=== PATIENT | male | born 1930 | race Caucasian/White ===

== ENCOUNTER → 2017-08-14 | Day surgery (SDC) | payer OTHER, MEDICARE ==
[~2017-08-14] VITALS: Ht 165.1 cm; Wt 63.5 kg
[~2017-08-14] MED LIST: ATENOLOL25 M1 PO; CLOPIDOGREL75 M1 PO; DOXAZOSIN MESYLA4 M1 PO; FINASTERIDE5 M1 PO; MULTI-DAY VITA1 EACH PO; SIMVASTATIN10 M1 PO
--- NOTE | 2017-08-14 13:55 | Operative Report ---
Operative/Inv Procedure Report Surgery Date: 08/14/17 Name of Procedure: TURP/TURBT Pre-Operative Diagnosis: Benign prostatic hypertrophy and bladder tumor Post-Operative Diagnosis: same Estimated Blood Loss: 50ml to 100ml Surgeon/Flight Director: Breanna Persaud MD Anesthesia: laryngeal mask airway Drains: 18 Ecuadorean coud catheter Specimens: Prostate chips and bladder tumor chips Complications: None Condition: Stable Operative Indication: Benign prostatic hypertrophy with lower urinary tract symptoms and bladder tumor Operative/Procedure Note Note: This an operative dictation on patient Bubba Rodriguez. He was seen in the office for benign prostatic hypertrophy and had been given conservative management with medication but had no improvement. A cystoscopy and urodynamics was scheduled and on cystoscopy he was found to have a large prostate with obstructing bilateral lobes and no median lobe as well as bladder tumor at the left lateral wall. He was given the risks benefits and alternatives of surgery for the prostate as well as resection of the bladder tumor. He understood the risks benefits and alternatives and wished to proceed. Patient was identified in the holding area and consented for the above. All questions were answered. He was then taken to the operating room placed on the operating table in the supine position. Timeout was performed. IV antibiotics were infused and general anesthesia with LMA was begun. Patient was placed in the dorsolithotomy position and prepped and draped in the standard sterile fashion. A cystoscopy was performed and the bladder was globally inspected. There were no other bladder lesions other than the one on the left lateral wall that was seen in the office. It was superior to the left ureteral orifice. The prostate was then examined on the way out and it was seen to be enlarged was obstructing lateral lobes and no median lobe. The verumontanum was easily identified. The cystoscope was removed and the resectoscope with a 24 loop was then used on the bipolar setting with normal saline. The lateral lobes were resected sequentially from the left side then to the right and then the floor the bladder. Point coagulation was performed as bleeders were unroofed. Throughout the resection, anatomic landmarks of the verumontanum and ureteral orifices were kept in view and care was taken not to go beyond this anatomic landmark or injure the ureters. The prostatic channel was nice and open. The Wiseryou evacuator was then used to remove the prostatic chips. These were sent in formalin. Attention was then turned to the bladder portion of the case. The bladder tumor was photographed with a camera pre-the resection. The resection loop was then used to remove the bladder tumor taking care not to injure the ureter which was to inferior to the tumor. Point coagulation was performed as bleeders were unroofed and coag lesion was performed at the border of the bladder tumor resection site at the end of the resection. The bladder tumor chips were then sent in formalin as well separate from the prostate chips. There was no active bleeding in the bladder tumor resection site or the prostatic the bed. The resectoscope was removed. An 18 Ecuadorean coud catheter was placed and the balloon filled with 10 mL of water. The Prakash catheter was then attached to a prakash bag. The patient tolerated the procedure well he was transferred to the recovery room in stable condition. Findings: Enlarged prostate with obstructing lateral lobes. Bladder tumor along the left lateral wall in a flat orientation proximally 3 satellite sites. The tumor was superior to the ureteral orifice. Discharge Disposition: PACU
== END ==
LOC: STS 03:41
DX: N40.1 Benign prostatic hyperplasia with lower urinary tract symptoms (principal); C67.2 Malignant neoplasm of lateral wall of bladder; R35.0 Frequency of micturition; I25.10 Atherosclerotic heart disease of native coronary artery without angina pectoris; I10 Essential (primary) hypertension; I45.10 Unspecified right bundle-branch block
CPT/HCPCS: J0131; J0690; J2250

== ENCOUNTER 2017-12-12 09:52 | Emergency (ER) | payer OTHER ==
[~2017-12-12] VITALS: Ht 165.1 cm; Wt 68.0 kg
[2017-12-12 10:07] VITALS: BP 128/68
[2017-12-12 10:49] LABS: ABSOLUTE BASOPHIL COUNT 0 /CUMM (0.0-0.2); ABSOLUTE EOSINOPHIL COUNT 0.1 /CUMM (0.0-0.7); ABSOLUTE GRANULOCYTE CT 4.8 /CUMM (1.4-6.5); ABSOLUTE LYMPH COUNT 1.2 /CUMM (1.2-3.4); ABSOLUTE MONOCYTE COUNT 0.3 /CUMM (0.10-0.60); BASOPHIL % 0.7 % (0.0-2.0); EOSINOPHIL % 1.5 % (0-5); GRANULOCYTE % 74.6 % (42.2-75.2); HEMATOCRIT 41.1 % (42-52); MEAN CORPUSCULAR HGB 32.1 PG (27.0-31.0); MEAN CORPUSCULAR HGB CONC 33.4 G/DL (33.0-37.0); PLATELET COUNT 202 /CUMM (130-400); RBC DISTRIBUTION WIDTH 13.1 % (11.5-14.5); RED BLOOD CELL CT 4.28 /CUMM (4.70-6.10); WHITE BLOOD CELL COUNT 6.4 /CUMM (4.8-10.8)
--- NOTE | 2017-12-12 12:02 | RADIOLOGY REPORT ---
EXAMINATION: XR LUMBOSACRAL SPINE XR HIP, LEFT CLINICAL INFORMATION: Left gluteal and thigh pain. History of osteoarthritis. COMPARISON: None TECHNIQUE: Lumbosacral spine, 4 views Left hip, AP and frog-leg lateral views, as well as pelvis, AP view FINDINGS: Lumbosacral spine: Bones appear diffusely osteopenic. Multilevel facet osteoarthritis of the lumbar spine and mild dextrocurvature of the lumbar spine. Severe degenerative disc disease of L3-L4, L4-L5 and L5-S1 and 0.3 cm grade 1 anterolisthesis of L5 on S1. No acute fracture. Abdominal aorta is calcified. Cluster of rim-like calcifications in the right abdomen, consistent with cholelithiasis. Left hip: Bones appear diffusely osteopenic. The femoral head is well-positioned within the intact acetabulum. There is mild osteophyte formation of the left hip. The articular cartilage space of the hip is maintained. The radiographs of the pelvis shows mild osteoarthrosis of the right hip, as well. Peripheral vessels are calcified. Multiple surgical clips are present in the medial thigh. IMPRESSION: 1. Degenerative disc disease and facet osteoarthritis of L3-L4, L4-L5 and L5-S1. 2. No acute fractures within the severely degenerated lumbar spine. 3. Mild, grade 1 anterolisthesis of L5 on S1. 4. Mild osteoarthrosis of the hips. 5. Cholelithiasis.
--- NOTE | 2017-12-12 12:05 | ED GENERAL ADULT ---
History of Present Illness General Chief Complaint: General Adult Stated Complaint: "BACK PAIN AND A LOT OF GAS" Source: patient, family, old records, Epic Exam Limitations: no limitations Vital Signs & Intake/Output Vital Signs & Intake/Output Vital Signs Date Time Temp Pulse Resp B/P B/P Pulse O2 O2 Flow FiO2 Mean Ox Delivery Rate 12/12 1007 88 16 128/68 95 Room Air Allergies Coded Allergies: No Known Allergies (02/17/16) Reconcile Medications Atenolol 25 MG TABLET 0.5 TAB PO DAILY HEART (Reported) Clopidogrel Bisulfate (Clopidogrel) 75 MG TABLET 1 TAB PO DAILY BLOOD THINNER (Reported) Doxazosin Mesylate 4 MG TABLET 1 TAB PO QHS PROSTATE (Reported) Finasteride 5 MG TABLET 1 TAB PO DAILY PROSTATE (Reported) Multivitamin (Multi-Day Vitamins) 1 EACH TABLET 1 TAB PO DAILY SUPPLEMENT ( Reported) Simvastatin (Simvastatin*) 10 MG TABLET 1 TAB PO QPM CHOLESTEROL (Reported) Triage Note: PT TO ER C/C LEFT FLANK PAIN WORSENING X 3 DAYS, DENIES KNOWN INJURY OR TRAUMA. DENIES URINARY S/S. ALSO C/O SEVERE GI GAS PAIN X "WEEKS" Triage Nurses Notes Reviewed? yes Onset: 3 days Duration: day(s):, constant, continues in ED, getting worse Timing: recent history Injury Environment: home Severity: moderate, severe Modifying Factors: Worsens With: movement. HPI: 3 days prior to admission patient complains of left hip pain radiating to his thigh described as achy constant worse with movement of leg walking. He denies difficulty walking secondary to the pain. He tried ibuprofen without relief. He denies fever chills nausea vomiting diarrhea abdominal pain chest pain shortness breath headache dysuria rash bleeding trauma change in bowel bladder habit. Past History Travel History Traveled to [place] past 21 day No Medical History Any Pertinent Medical History? see below for history Neurological: NONE EENT: NONE Cardiovascular: hyperlipidemia Respiratory: NONE Gastrointestinal: NONE Hepatic: NONE Renal: benign prost hyperplasia Musculoskeletal: NONE Psychiatric: NONE Endocrine: NONE Blood Disorders: NONE Cancer(s): NONE CLOD PULLER/Reproductive: NONE Surgical History Surgical History: non-contributory Psychosocial History What is your primary language Danish Tobacco Use: Never used Family History Hx Contributory? No Review of Systems Review of Systems Constitutional: Reports: no symptoms. EENTM: Reports: no symptoms. Respiratory: Reports: no symptoms. Cardiovascular: Reports: no symptoms. GI: Reports: see HPI, bloating (gas). Genitourinary: Reports: no symptoms. Musculoskeletal: Reports: see HPI, joint pain. Skin: Reports: no symptoms. Neurological/Psychological: Reports: no symptoms. Hematologic/Endocrine: Reports: no symptoms. Immunologic/Allergic: Reports: no symptoms. All Other Systems: Reviewed and Negative Physical Exam Physical Exam General Appearance: well developed/nourished, alert, awake, anxious, moderate distress Head: atraumatic, normal appearance Eyes: Bilateral: normal appearance, PERRL, EOMI. Ears, Nose, Throat: normal pharynx, normal ENT inspection, hearing grossly normal Neck: normal inspection, supple, full range of motion, no midline tenderness Respiratory: normal breath sounds, chest non-tender, no respiratory distress, quiet respiration, lungs clear Cardiovascular: regular rate/rhythm, normal peripheral pulses, norml femoral pulses equa Peripheral Pulses: 4+ carotid (R), 4+ carotid (L) Gastrointestinal: normal bowel sounds, soft, non-tender, no organomegaly Back: normal inspection, normal range of motion, no vertebral tenderness Extremities: normal inspection, normal capillary refill, limited range of motion , straight leg raised, no ligament instability Neurologic/Psych: no motor/sensory deficits, awake, alert, oriented x 3, normal mood/affect, clinical analyst II-XII nml as tested Reflexes: 2+: bicep (R), bicep (L). Skin: intact, normal color, warm/dry Lymphatic: no anterior cervical gerson Core Measures ACS in differential dx? No CVA/TIA Diagnosis: No Sepsis Present: No Sepsis Focused Exam Completed? No Progress Differential Diagnoses I considered the following diagnoses in my evaluation of the patient: Fracture osteoarthritis sciatica electrolyte abnormality Plan of Care: Orders Procedure Date/time Status URINALYSIS 12/12 1014 Complete TROPONIN LEVEL 12/12 1014 Complete MAGNESIUM 12/12 1014 Complete LIPASE 12/12 1014 Complete COMPREHENSIVE METABOLIC PANEL 12/12 1014 Complete CBC WITHOUT DIFFERENTIAL 12/12 1014 Complete EKG 12/12 0954 Active Laboratory Tests 12/12/17 1203: Urine Color YEL, Urine Clarity CLEAR, Urine pH 7.5, Ur Specific [place] 1.015, Urine Protein NEG, Urine Ketones NEG, Urine Nitrite NEG, Urine Bilirubin NEG, Urine Urobilinogen 0.2, Ur Leukocyte Esterase NEG, Ur Microscopic EXAM NOT REQUIRED, Urine Hemoglobin NEG, Urine Glucose NEG 12/12/17 1026: Anion Gap 7, Estimated GFR > 60, BUN/Creatinine Ratio 31.7 H, Glucose 139 H, Calcium 8.8, Magnesium 1.9, Total Bilirubin 1.0, AST 33, ALT 34, Alkaline Phosphatase 75, Troponin I < 0.01, Total Protein 6.9, Albumin 3.9, Globulin 3.0, Albumin/Globulin Ratio 1.3, Lipase 298, CBC w Diff NO MAN DIFF REQ, RBC 4.28 L, MCV 96.0 H, MCH 32.1 H, MCHC 33.4, RDW 13.1, MPV 8.0, Gran % 74.6, Lymphocytes % 18.1 L, Monocytes % 5.1, Eosinophils % 1.5, Basophils % 0.7, Absolute Granulocytes 4.8, Absolute Lymphocytes 1.2, Absolute Monocytes 0.3, Absolute Eosinophils 0.1, Absolute Basophils 0 Diagnostic Imaging: Viewed by Me: Radiology Read. Discussed w/RAD: Radiology Read. Radiology Impression: 1. Degenerative disc disease and facet osteoarthritis of L3-L4, L4-L5 and L5-S1. 2. No acute fractures within the severely degenerated lumbar spine. 3. Mild, grade 1 anterolisthesis of L5 on S1. 4. Mild osteoarthrosis of the hips. 5. Cholelithiasis. Initial ED EKG: RBBB, PVCs Prior EKG: unchanged (except PVCs) Rhythm Strip: normal sinus rhythm Departure Departure Time of Disposition: 1327 Disposition: HOME OR SELF CARE Condition: Stable Clinical Impression Primary Impression: Osteoarthritis of lumbar spine Secondary Impressions: Osteoarthritis of left hip Referrals: Rom LIN,MKiarra Amanda (PCP/Family) Departure Forms: Customer Survey General Discharge Information Prescriptions: Current Visit Scripts Meloxicam (Mobic) 1 TAB PO DAILY #30 TAB Tramadol HCl (Ultram) 1 TAB PO Q6P PRN severe pain #30 TAB Critical Care Note Critical Care Note Critical Care Time: non-applicable
[2017-12-12] MEDS ORDERED: MOBIC7.5 M1 PO ×2 (13:28→13:29)
[2017-12-12] MEDS ORDERED: ULTRAM50 M1 PO (13:29)
== END 2017-12-12 14:06 ==
LOC: ERH 09:52
PROVIDERS: Emergency Medicine
DX: M47.816 Spondylosis without myelopathy or radiculopathy, lumbar region (principal); M16.12 Unilateral primary osteoarthritis, left hip
CPT/HCPCS: 72110; 81003; 93005; 93010; 96372; J1885